=== PATIENT | male | born 1960 | race Caucasian/White ===

== ENCOUNTER 2016-10-30 02:21 | Emergency (ER) | payer MEDICARE ==
[2016-10-30 02:36] VITALS: BP 137/109
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
[2016-10-30] MEDS ORDERED: Sodium Chloride 0.9% 10 ML Syringe FLUSH ONE (03:25)
[2016-10-30] MEDS ORDERED: Iopamidol 612 MG/ML 150 ML Bottle IVPUSH ONE (03:25)
[2016-10-30] MEDS ORDERED: Acetaminophen/oxyCODONE 325-5 MG Tab PO ONE (05:20)
--- NOTE | 2016-10-31 09:35 | CT ---
CT abdomen and pelvis Technique: Multiple axial sections were obtained from above the dome of the diaphragm inferiorly through the pubic symphysis. Intravenous contrast was utilized. No oral contrast has been given. Comparison: No previous study is available. Findings: Incidental atelectasis within both lung bases is noted. Liver and spleen show no focal abnormality. Adrenal glands are unremarkable. Pancreas appears normal. Kidneys show symmetric contrast enhancement without hydronephrosis or mass. Gallbladder shows no calcified gallstones. Aorta shows no aneurysmal dilatation. No retroperitoneal adenopathy or mesenteric abnormalities are seen. Appendix is seen which appears normal. No pelvic mass or adenopathy is seen. No bowel wall thickening is seen. No free fluid or inflammatory change is seen. Bone window settings were reviewed showing scattered degenerative spurring within the spine. No discrete pelvic fracture is identified. Impression: 1. Nothing acute is seen on CT study of the abdomen and pelvis. Diagnostic code #2 Agree with preliminary report issued by [facility] ([facility] preliminary report dictated on 10/30/16, 5:04 AM Central Time)
--- NOTE | 2016-10-31 09:35 | CT ---
CT cervical spine Technique: Multiple axial sections were obtained from above C1 inferiorly to the bottom of T1. Reconstructed sagittal and coronal images were reviewed. Findings: Moderate disc space narrowing noted at C5-C6 and C6-C7. Anterior osteophytes are seen at C3-C4 through C6-C7. Posterior spurring is noted primarily at C5-C6 and lesser at C6-C7. Degenerative spurring within the uncovertebral joints seen throughout the cervical spine most prominent at C5-C6 and C6-C7. Minimal scoliosis is noted. Mastoid sinuses and middle ear cavities are clear as seen. Posterior skull base appears intact. Vertebral bodies and posterior arches are intact. No fracture is seen. Mild scattered degenerative apophyseal change is seen throughout the cervical spine. Mild bilateral neural foraminal stenosis noted at C6-C7 with moderate bilateral neural foraminal stenosis being seen at C5-C6. Mild to moderate right-sided neural foraminal stenosis noted at C4-C5. Moderate left-sided neural foraminal stenosis noted at C3-C4. No bony central canal stenosis is seen. No abnormal subluxation is seen. Impression: 1. Diffuse degenerative change. 2. No acute fracture or abnormal subluxation is seen on CT study of the cervical spine. Diagnostic code #2 Agree with preliminary report issued by [facility] ([facility] preliminary report dictated on 10/30/16, 5:08 AM Central Time)
--- NOTE | 2016-10-31 09:35 | CT ---
CT lumbar spine Technique: Multiple axial sections through the lumbar spine were obtained. Reconstructed sagittal and coronal images were reviewed. Comparison: No previous lumbar spine imaging is available. Findings: Disc space narrowing noted at T11-T12 and T12-L1. Posterior disc space narrowing noted at L1-L2. Scattered endplate osteophytes seen throughout the lower thoracic and lumbar spine. No fracture is identified. Mild degenerative apophyseal changes noted at L4-L5 and L5-S1. Slight circumferential disc bulge noted at L3-L4. Minimal circumferential disc bulge noted at L4-L5. No central canal stenosis is seen. Neural foramina are patent where the nerve roots exit. No abnormal subluxation is seen. Scattered incidental Schmorl's node deformities are seen. Impression: 1. Scattered degenerative change and incidental Schmorl's node deformities. 2. Nothing acute is appreciated on CT study of the lumbar spine. Diagnostic code #2 Agree with preliminary report issued by [facility] ([facility] preliminary report dictated on 10/30/16, 5:06 AM Central Time)
--- NOTE | 2016-10-31 09:35 | CR ---
Chest: Frontal view of the chest was obtained. Comparison: No previous study. Heart size is normal. Tortuous thoracic aorta is seen. Deformity to several left-sided ribs are seen which are felt compatible with old healed fractures. Previous resection of a portion of the distal right clavicle is noted. Mild degenerative change and scoliosis is seen within the spine. Impression: 1. Incidental findings. Nothing acute is identified on frontal chest x-ray. Diagnostic code #2
== END 2016-10-30 05:40 | disposition home or self-care (01) ==
LOC: JD.ED 02:21
DX: S16.1XXA Strain of muscle, fascia and tendon at neck level, initial encounter (principal); S39.012A Strain of muscle, fascia and tendon of lower back, initial encounter; S39.011A Strain of muscle, fascia and tendon of abdomen, initial encounter; Z98.1 Arthrodesis status; Z98.890 Other specified postprocedural states; V50.5XXA Driver of pick-up truck or van injured in collision with pedestrian or animal in traffic accident, initial encounter; Y92.410 Unspecified street and highway as the place of occurrence of the external cause
CPT/HCPCS: 36415; 71010; 72125; 72131; 74177; 80053; 81001; 85025; 99285; A9270; J7050; Q9967; 99284